=== PATIENT | male | born 1945 | race Caucasian/White ===

== ENCOUNTER 2016-06-27 13:29 | Emergency (ER) | payer OTHER, MEDICARE ==
[~2016-06-27] VITALS: Ht 175.3 cm; Wt 80.9 kg
[2016-06-27 13:40] VITALS: BP 93/54; PULSE 78; RESP 18; O2SAT 99
--- NOTE | 2016-06-27 15:15 | DRSVH ---
PROCEDURE: US VEINOUS LEG DUPLEX UNILATERAL, LEFT INDICATIONS: post lt knee replacement, lt calf pain/swelling TECHNIQUE: Real-time imaging, as well as color and pulse Doppler interrogation, were performed of the lower extr emity deep veins from the inguinal ligament to the popliteal fossa. COMPARISON: None. FINDINGS: The deep veins are normally compressible, and free of intraluminal thrombus. Color and pu lse Doppler demonstrate normal phasic intraluminal flow. There is normal augmentation response to di stal compression maneuver. Note is made of 2 nonvascular complex fluid collections at the popliteal fossa, one posteriorly and the second posterior rib medially. The more medial structure measures up to 1.9 x 2.1 x 5.7 cm and the more [id number] posterior fluid collection measures approximately 4.4 x 4.9 cm. 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 No aneurysm found. No DVT identified. Dictated by: Santhosh El M.D. on 06/27/2016 at 15:07 Approved by: Santhosh El M.D. on 06/27/2016 at 15:13
--- NOTE | 2016-06-27 15:15 | ED.REPORT ---
HPI-Extremity Problem Lower Date of Service Jun 27, 2016 ED Provider: Antonio Rogel MD 71 year old male anticoagulated on Plavix who is two weeks status post left knee replacement presents to the ER complaining of left calf pain with concern for blood clot. He also reports that he hasn't been recovering well and has been taking much more pain medication than expected. Patient denies any abnormal swelling, redness, fever, chest pain, SOB, nausea, and vomiting. He has a follow-up appointment with his orthopedic surgeon, Dr. Zack Cunningham, in a week. Currently he is ambulatory with the aid of his walker. Nursing Notes Stated Complaint: POSSIBLE BLOOD CLOT IN LEFT KNEE POST SURGERY Chief Complaint: Extremity Trauma Nursing Notes Reviewed: Yes Allergies: Coded Allergies: No Known Allergies (Unverified , 06/27/16) General Time Seen by MD: 15:14 Chief Complaint Leg injury left Hx Obtained From: Patient Arrived By: Walk-in Onset Occurred: More than a week ago... (2 weeks) Symptom Duration: Since onset Location: : Leg left Quality: Painful Severity: Current: Moderate Severity: Maximum: Moderate Associated with: Reports: Swelling, Denies: Chest pain, Fever, Nausea, Vomiting Past Medical History Past Medical History Notes: Dr. Zack Cunningham, Orthopedic Surgeon Past Medical History Paroxysmal arrhythmia Past Surgical History Reports: Knee replacement (Left) Smoking History Unknown if Ever Smoker Ambulatory Status Walker Review of Systems Constitutional: Denies: Chills, Fever Musculoskeletal: Reports: Extremity pain (Left Leg), Extremity swelling (Left Leg), Joint pain (Left knee), Denies: Lumbar pain, Neck pain, Thoracic pain Skin: Denies Rash Complete sys rev & neg: except as marked. Respiratory: Denies: Non-productive cough, Shortness of breath Cardiovascular: Denies: Chest pain GI: Denies: Nausea, Vomiting Physical Exam Initial Vital Signs Vital Signs (First) Date Time Temp Pulse Resp B/P Pulse Ox O2 Delivery O2 Flow Rate FiO2 06/27/16 13:40 36.1 78 18 93/54 99 Initial VS: Reviewed General/Constitutional: Well-developed, Well-nourished Head / Eyes: Atraumatic, Normocephalic, PERRL Neck: Supple, Non-tender, Full range of motion Upper Extremities: Vascular intact, Neuro intact, No swelling, No tenderness Skin: Warm, Dry, No cyanosis Neurologic: Alert, Oriented, Nonfocal Psychiatric: Mood/affect normal, Behavior normal, Normal thought content Lower Extremity / Pelvis / MS: Full range of motion, Neurologic intact, Vascular intact Left Knee: Positive: Swelling present... (Moderate), Tenderness present..., Negative: Ecchymosis present, Erythema present, ROM reduced Swelling to the medial and lateral Left knee, no fluctuance. Ankle / Foot: Atraumatic, Inspection NL, Full range of motion, No swelling, No erythema, Non-tender, No deformity, Neurologic intact, Vascular intact, No edema Interpretation & Diagnostics US Soft Tissue/Musculoskeletal PROCEDURE: US VEINOUS LEG DUPLEX UNILATERAL, LEFT INDICATIONS: post lt knee replacement, lt calf pain/swelling TECHNIQUE: Real-time imaging, as well as color and pulse Doppler interrogation, were performed of the lower extremity deep veins from the inguinal ligament to the popliteal fossa. COMPARISON: None. FINDINGS: The deep veins are normally compressible, and free of intraluminal thrombus. Color and pulse Doppler demonstrate normal phasic intraluminal flow. There is normal augmentation response to distal compression maneuver. Note is made of 2 nonvascular complex fluid collections at the popliteal fossa, one posteriorly and the second posterior rib medially. The more medial structure measures up to 1.9 x 2.1 x 5.7 cm and the more [id number]-[id number]-ujipb posterior fluid collection measures approximately 4.4 x 4.9 cm. 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 No aneurysm found. No DVT identified. Dictated by: Santhosh El M.D. on 06/27/2016 at 15:07 Approved by: Santhosh El M.D. on 06/27/2016 at 15:13 Exam Performed by: Radiologist Re-Eval/Medical Decision Med Decision/Clinical Course 71-year-old male 2 weeks status post left knee surgery presenting with left calf swelling 2 weeks. Denies any chest pain or shortness of breath. Denies any fevers, nausea vomiting. On exam left calf is diffusely swollen. There is no signs of infection. Ultrasound shows no DVT. It does show fluid bilateral popliteal fossa. There is no clinical evidence of abscess on exam. Likely postoperative changes. Full range of motion with no tenderness. Given no signs of infection and no evidence of DVT, patient can be discharged home with follow-up with orthopedics. Advised to call for an appointment tomorrow. Return precautions given regarding signs and symptoms blood clot or infection. Re-Evaluation/Progress : Time of Eval: 15:31 Re-Evaluation/Progress Note: Discussed lab and radiology results and plan to discharge. Patient is amenable to the plan. Return precautions given. All other questions addressed. Counseled Regarding: Diagnosis, Lab results Discharge & Departure Impression: Primary Impression: Postoperative pain of left knee Disposition: Home Discharge Condition All VS Reviewed: Yes Condition: Stable Additional Instructions: Your workup was reassuring, I do not think that there is any dangerous cause for your symptoms at this time. Go home and rest. Continue your current rehabilitation regimen. Keep your appointment with your orthopedic surgeon. Call him in 1-2 days and see if you can expedite your appointment. Return to the ER if you develop worsening pain, redness, discharge from the wound, other signs of infection, fever, chills, chest pain, shortness of breath , nausea, vomiting, or any other concerning signs or symptoms. Referrals: OTHER,PHYSICIAN (PCP) Scribe Attestation Portions of this note were transcribed by Jesus Echevarria. I, Dr. Rogel, personally performed the history, physical exam and medical decision-making; I reviewed and confirmed the accuracy of the information in the transcribed note. Signed by: Ramila Bolanos, 06/27/2016 - 15:34 Antonio Rogel MD Jun 27, 2016 15:15 JESUS ECHEVARRIA Jun 27, 2016 15:31
== END 2016-06-27 15:45 | disposition home or self-care (01) ==
LOC: SED 13:29
DX: G89.18 Other acute postprocedural pain (principal); M25.562 Pain in left knee; Z96.652 Presence of left artificial knee joint; Z79.01 Long term (current) use of anticoagulants